=== PATIENT | female | born 1970 | race Caucasian/White ===

== ENCOUNTER 2021-07-09 09:04 | Emergency (ER) | payer SELFPAY ==
[~2021-07-09] VITALS: Ht 165 cm; Wt 117.0 kg
[2021-07-09 09:16] VITALS: BP 193/87
--- NOTE | 2021-07-09 09:40 | ED EENT ---
History of Present Illness General Chief Complaint: Dental Problems/Pain Stated Complaint: DENTAL & FACIAL PAIN Nursing Triage Note: Pt here with dental/gum pain to the lower right gum/jaw. Pt reports onset 1.5 wk ago. Pt has seen a dentist and was referred to an oral surgeon. 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 She has had them surgically drained by the dentist but she had a wound that opened up exposing the maxilla on the medial side of her right jaw. She was referred to maxillofacial surgeon but says she has not been able to follow-up with them because she does not have money, and, or insurance. She has not called the dental surgeon. She follows with a dentist at [facility]. She says there is nothing else they can do to help her about this. She did 2 courses of clindamycin and has some loose stools but no bloody stools fevers or chills. She says the pain in her jaw is very tolerable at this time. She is not on probiotics Allergies and Home Medications Allergies Coded Allergies: amoxicillin (Verified Allergy, Severe, Shortness of Breath, 07/09/21) aspirin (Verified Allergy, Severe, Wheezing, 07/09/21) bupropion (Verified Allergy, Severe, Hives, 07/09/21) Penicillins (Verified Allergy, Unknown, Respiratory, 07/09/21) codeine (Verified Allergy, Unknown, 07/09/21) Patient Home Medication List Home Medication List Reviewed: Yes Review of Systems Review of Systems Constitutional: No chills, No diaphoresis Eyes: Denies Blindness, Denies Blurred Vision Ears: Denies Dizziness, Denies Pain Nose: denies clots, denies congestion Mouth: see HPI; denies clots; pain; denies swelling, denies purulent discharge Throat: denies pain, denies swelling Respiratory: No cough, No short of breath All Other Systems Reviewed Negative Unless Noted: Yes Past Qwvzjge-Xlcmrj-Norppd Hx Patient Social History Tobacco Use?: Yes Smoking Status: Current Everyday Smoker Use of E-Cig and/or Vaping dev: No Substance use?: No Alcohol Use?: No Physical Exam Vital Signs Vital Signs - First Documented 07/09/21 09:16 Temp 36.9 Pulse 83 Resp 18 B/P (MAP) 193/87 (122) Pulse Ox 96 O2 Delivery Room Air Height, Weight, BMI Height: '" Weight: lbs. oz. kg; 42.00 BMI Method: General Appearance: WD/WN, no apparent distress Eyes: bilateral eye normal inspection, bilateral eye PERRL, bilateral eye EOMI Ears: bilateral ear auricle normal, bilateral ear canal normal Nose: normal inspection; No active bleeding, No discharge Mouth/Throat: other (Extensive dental caries with a large 1 x 2.5 cm ulcer on the medial side of the right mandible. It appears dry but oral mucosa is moist. There does not appear to be any oozing fluctuance or active abscess. 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 II-XII nml as tested, no motor/sensory deficits, alert, normal mood/affect, oriented x 3 Skin: normal color, warm/dry Progress/Results/Core Measures Results/Orders My Orders Orders - ERIKA SHAIKH Ct Maxillofacial Wo (07/09/21 09:34) Lidocaine 2% Viscous 15 Ml (Xylocaine Vi (07/09/21 09:45) Medications Given in ED Current Medications Medications Dose Ordered Sig/Leo Route Start Time Stop Time Status Last Admin Dose Admin Lidocaine HCl 5 ml ONCE ONCE PO 07/09/21 09:45 07/09/21 09:46 DC 07/09/21 09:53 5 ML Vital Signs/I&O 07/09/21 07/09/21 09:16 09:58 Temp 36.9 Pulse 83 86 Resp 18 18 B/P (MAP) 193/87 (122) 180/79 Pulse Ox 96 96 O2 Delivery Room Air Room Air Blood Pressure Mean: 122 Progress Progress Note #1: Time: 09:39 Progress Note We have encouraged her to quit smoking. We will provide her with some viscous lidocaine. We will obtain a CT of the maxillofacial to rule out progressive disease. We will give her Dr. Araiza, orofacial maxillary surgeons number and recommend that she follow-up with him for definitive care. Probiotics twice daily. Progress Note #2: Time: 11:00 Progress Note We went back to check on the patient and gave her the results of her CT scan she had left without speaking to anybody. Diagnostic Imaging Diagonstic Imaging: CT Plain Films/CT/US/NM/MRI: facial bones Comments [facility], [place] NAME: JULIEN MCCALLUM [facility] REC#: [id number] PT STATUS: REG ER : 1970 PHYSICIAN: ERIKA SHAIKH MD ADMIT DATE: 07/09/21/ER Draft Date of Exam:07/09/21 CT MAXILLOFACIAL WO PROCEDURE: CT maxillofacial without contrast. TECHNIQUE: Multiple contiguous axial images were obtained through the facial bones without the use of intravenous contrast. Auto Exposure Controls were utilized during the CT exam to meet ALARA standards for radiation dose reduction. INDICATION: Pain in the right jaw. FINDINGS: The frontal sinus is clear. The ethmoid air cells and sphenoid sinus are clear. The bilateral maxillary sinuses are clear. The mastoids are well aerated. There is some nasal septal deviation to the right. The ostiomeatal complexes are patent bilaterally. There appears to have been a recent right posterior mandibular tooth extraction. No fluid collection or abscess is identified. IMPRESSION: 1. No evidence of sinusitis. 2. Recent right mandibular tooth extraction. No fluid collection or abscess is identified. Dictated on workstation # [id number] Dict: 07/09/21 0955 Trans: 07/09/21 0959 [id number] Interpreted by: HERNANDEZ LAUREANO MD Electronically signed by: Reviewed: Reviewed by Me Departure Impression Primary Impression: Pain due to dental caries Disposition: 01 HOME, SELF-CARE Condition: Stable Departure-Patient Inst. Decision time for Depature: 13:51 Referrals: VALENTIN ARAIZA DDS NO,LOCAL PHYSICIAN (PCP) Primary Care Physician Patient Instructions: Tooth Decay ED Add. Discharge Instructions: Follow-up with the dental surgeon by calling for an appointment. Viscous lidocaine 5 cc on gauze applied every 6 hours as needed for pain. Tylenol and Motrin as necessary for pain. Probiotics 1 capsule twice a day for the next 2 to 4 weeks. All discharge instructions reviewed with patient and/or family. Voiced understanding. Copy Copies To 1: VALENTIN ARAIZA DDS, TITUS J Jul 09, 2021 09:40
[2021-07-09] MEDS ORDERED: LIDOCAINE 2% VISCOUS 15 ML UDC PO ONE (09:45)
--- NOTE | 2021-07-09 09:59 | Diagnostic Imaging Report ---
PROCEDURE: CT maxillofacial without contrast. TECHNIQUE: Multiple contiguous axial images were obtained through the facial bones without the use of intravenous contrast. Auto Exposure Controls were utilized during the CT exam to meet ALARA standards for radiation dose reduction. INDICATION: Pain in the right jaw. FINDINGS: The frontal sinus is clear. The ethmoid air cells and sphenoid sinus are clear. The bilateral maxillary sinuses are clear. The mastoids are well aerated. There is some nasal septal deviation to the right. The ostiomeatal complexes are patent bilaterally. There appears to have been a recent right posterior mandibular tooth extraction. No fluid collection or abscess is identified. IMPRESSION: 1. No evidence of sinusitis. 2. Recent right mandibular tooth extraction. No fluid collection or abscess is identified. Dictated by: Dictated on workstation # [id number]
== END 2021-07-09 11:34 | disposition left against medical advice (07) ==
LOC: ER 09:06
DX: K02.9 Dental caries, unspecified (principal); F17.290 Nicotine dependence, other tobacco product, uncomplicated
CPT/HCPCS: 70486; 99282